=== PATIENT | male | born 1955 | race Caucasian/White ===

== ENCOUNTER 2017-03-25 11:07 | Day surgery (SDC) | payer MEDICAID ==
[~2017-03-25] VITALS: Ht 180.3 cm; Wt 104.3 kg
[2017-03-25] MEDS ORDERED: LIDOCAINE 2%HCL (LOCAL ANESTH.) INJ 20ML MDV ONE (12:16)
[2017-03-25] MEDS ORDERED: IODIXANOL 320MG/ML 100ML BTL IV ONE (12:16)
[2017-03-25] MEDS ORDERED: VERAPAMIL 2.5MG/ML INJ 2ML VIAL IV ONE (13:18)
[2017-03-25] MEDS ORDERED: MIDAZOLAM HCL 1MG/1ML-2 ML VIAL ONE (13:19)
[2017-03-25] MEDS ORDERED: fentaNYL CITRATE 100 MCG/2 ML VL ONE (13:19)
[2017-03-25] MEDS ORDERED: HEPARIN SODIUM (PORCINE) 5000 UNITS/ML 1ML VIAL ONE (13:37)
[2017-03-25] MEDS ORDERED: ASPI81TA27 PO (14:32)
[2017-03-25] MEDS ORDERED: HYDR25TA4 PO (14:32)
[2017-03-25] MEDS ORDERED: ATEN-60 PO (14:32)
== END 2017-03-25 15:50 | disposition home or self-care (01) ==
LOC: CATH 11:07
PROVIDERS: ATTEND Internal Medicine
DX: I25.110 Atherosclerotic heart disease of native coronary artery with unstable angina pectoris (principal); E66.9 Obesity, unspecified; Z68.32 Body mass index [BMI] 32.0-32.9, adult; E78.5 Hyperlipidemia, unspecified; I10 Essential (primary) hypertension; E11.9 Type 2 diabetes mellitus without complications; F17.210 Nicotine dependence, cigarettes, uncomplicated; J40 Bronchitis, not specified as acute or chronic
CPT/HCPCS: 93458; C1769; C1894; J1644; J3010; 93005; 99152; J2250; Q9967

== ENCOUNTER → 2017-06-15 | Emergency (ER) | payer MEDICAID ==
[~2017-06-15] VITALS: Ht 182.9 cm; Wt 99.8 kg
[~2017-06-15] MED LIST: ASPI81TA27 PO; ATEN-60 PO; HYDR25TA4 PO
[2017-06-15 01:14] VITALS: BP 172/94
== END | disposition left against medical advice (07) ==
LOC: EDUNIT# 01:00 → EDBD 01:00 → ER 01:08
DX: M79.605 Pain in left leg (principal); Z53.21 Procedure and treatment not carried out due to patient leaving prior to being seen by health care provider
CPT/HCPCS: 70450; 70486; 72125; 72131